=== PATIENT | female | born 1940 | race Caucasian/White ===

== ENCOUNTER 2017-03-07 05:27 | Inpatient (IN) ==
[2017-03-07] MEDS ORDERED: VANCOMYCIN 1,000 MG VIAL ONE (05:55)
[2017-03-07] MEDS ORDERED: ceFAZolin 1,000 MG VIAL ONE (05:55)
[2017-03-07] MEDS ORDERED: LACTATED RINGERS 1,000 ML IV SCH (06:00)
[2017-03-07] MEDS ORDERED: VANCOMYCIN INJ 1,000 MG in SODIUM CHLORIDE 0.9% 250 ML IV ONE (06:30)
[2017-03-07] MEDS ORDERED: ceFAZolin 1,000 MG in SYRINGE 1 EACH IV ONE (06:30)
[2017-03-07] MEDS ORDERED: DIAZEPAM 5 MG TABLET PO ONE (07:58)
[2017-03-07] MEDS ORDERED: FAMOTIDINE 20 MG TABLET PO ONE (07:58)
[2017-03-07] MEDS ORDERED: DIAZEPAM 5 MG TABLET ONE (07:59)
[2017-03-07] MEDS ORDERED: FAMOTIDINE 20 MG TABLET ONE (07:59)
[2017-03-07] MEDS ORDERED: BACITRACIN OINT 0.9 GM PACK TOP ONE (08:51)
[2017-03-07] MEDS ORDERED: TRANEXAMIC ACID 1,000 MG/10 ML VIAL IV ONE (08:51)
[2017-03-07] MEDS ORDERED: ALBUTEROL 2.5 MG/3 ML NEB RESP TX PRN (11:30)
[2017-03-07] MEDS ORDERED: MORPHINE 2 MG/1 ML SYRINGE IV PRN ×2 (11:31)
[2017-03-07] MEDS ORDERED: diphenhydrAMINE CAP 25 MG CAPSULE PO PRN (11:31)
[2017-03-07] MEDS ORDERED: ZALEPLON 5 MG CAPSULE PO PRN (11:31)
[2017-03-07] MEDS ORDERED: ONDANSETRON 4 MG/2 ML VIAL IV PRN (11:31)
[2017-03-07] MEDS ORDERED: MAGNESIUM HYDROXIDE SUSP 30 ML UDCUP PO PRN (11:31)
[2017-03-07] MEDS ORDERED: ROPIVACAINE 0.5% 30 ML VIAL ONE (11:39)
[2017-03-07] MEDS ORDERED: ONDANSETRON 4 MG/2 ML VIAL ONE (11:41)
[2017-03-07] MEDS ORDERED: PROPOFOL 200 MG/20 ML VIAL IV ONE (11:41)
[2017-03-07] MEDS ORDERED: MIDAZOLAM 2 MG/2 ML VIAL ONE (11:41)
[2017-03-07] MEDS ORDERED: fentaNYL 100 MCG/2 ML VIAL ONE (11:42)
[2017-03-07] MEDS ORDERED: SODIUM CHLORIDE 0.9% 200 ML IV ONE (11:42)
[2017-03-07] MEDS ORDERED: ACETAMINOPHEN 1,000 MG/100 ML VIAL IV ONE (11:42)
[2017-03-07 13:41] LABS: Basophils % 0.7 % (0.0-0.8); Eosinophils # 0.1 10*3/uL (0.0-0.87); Eosinophils % 2.2 % (0.00-10.9); Hematocrit 36.7 VOL% (35.7-47.0); Hemoglobin 12.5 GM/DL (12.0-16.0); Immature Granulocytes % 0.3 %; Immature Granulocytes Absolute 0.02 #; Lymphocytes % 33.5 % (21.3-54.2); Mean Corpuscular HGB Conc 34.1 GM/DL (32-36); Mean Corpuscular Hemoglobin 31 PG (27-34); Mean Corpuscular Volume 91.5 FL (87-102); Mean Platelet Volume 8.9 FL (9.6-12.0); Monocytes # 0.4 10*3/uL (0.11-0.8); Monocytes % 7.3 % (1.7-12.7); Neutrophils # 3.4 10*3/uL (1.4-7.4); Platelet Count 193 T/CUMM (130-400); Red Blood Count 4.01 MC/CUMM (3.8-5.5); Red Cell Distribution Width 12.9 % (9.3-17.3)
[2017-03-07 14:01] LABS: Calcium 8.4 MG/DL (8.5-10.1); Osmolality,Calculated 283.3 MOS/KG (273-304); Potassium 4.1 MMOL/L (3.5-5.1)
[2017-03-07] MEDS: KETOROLAC 15 MG/1 ML VIAL IV SCH ×2 (16:03→19:09)
[2017-03-07] MEDS: LACTATED RINGERS 1,000 ML IV SCH ×2 (18:48→23:23)
[2017-03-07] MEDS: ACETAMINOPHEN 500 MG TABLET PO SCH ×2 (19:08→23:03)
[2017-03-07] MEDS: ceFAZolin 2,000 MG in PREMIX 1 EACH IV SCH (19:09)
[2017-03-07] MEDS: hydroCHLOROthiazide 25 MG TABLET PO SCH (20:24)
[2017-03-07] MEDS: IRON (CARBONYL)/VIT C/B12/FA TABLET PO SCH (20:24)
[2017-03-07] MEDS: AMITRIPTYLINE 50 MG TABLET PO SCH (20:25)
[2017-03-07] MEDS: DOCUSATE SODIUM 100 MG CAPSULE PO SCH (20:25)
[2017-03-08] MEDS: KETOROLAC 15 MG/1 ML VIAL IV SCH ×2 (01:23→06:39)
[2017-03-08] MEDS: ceFAZolin 2,000 MG in PREMIX 1 EACH IV SCH (01:31)
[2017-03-08] MEDS: FONDAPARINUX 2.5 MG/0.5 ML SYRINGE SUBCUT SCH (06:17)
[2017-03-08] MEDS: ACETAMINOPHEN 500 MG TABLET PO SCH ×2 (06:18→09:51)
[2017-03-08 06:20] LABS: Basophils % 0.5 % (0.0-0.8); Eosinophils # 0.2 10*3/uL (0.0-0.87); Eosinophils % 2.5 % (0.00-10.9); Hematocrit 34.5 VOL% (35.7-47.0); Hemoglobin 11.5 GM/DL (12.0-16.0); Immature Granulocytes % 0.5 %; Immature Granulocytes Absolute 0.03 #; Lymphocytes # 1.2 10*3/uL (1.4-4.0); Lymphocytes % 17.9 % (21.3-54.2); Mean Corpuscular HGB Conc 33.3 GM/DL (32-36); Mean Corpuscular Hemoglobin 31 PG (27-34); Mean Platelet Volume 9.2 FL (9.6-12.0); Monocytes # 0.7 10*3/uL (0.11-0.8); Monocytes % 11.2 % (1.7-12.7); Neutrophils # 4.3 10*3/uL (1.4-7.4); Neutrophils % 67.4 % (38.7-73.9); Platelet Count 159 T/CUMM (130-400); Red Blood Count 3.71 MC/CUMM (3.8-5.5); Red Cell Distribution Width 12.8 % (9.3-17.3); White Blood Count 6.4 T/CUMM (4-12)
[2017-03-08 06:36] LABS: Calcium 8.4 MG/DL (8.5-10.1); Osmolality,Calculated 280.5 MOS/KG (273-304); Potassium 3.8 MMOL/L (3.5-5.1)
[2017-03-08] MEDS ORDERED: NON-FORMULARY MEDICATION (Fluticasone/Vilanterol [Breo Ellipta 200-25 Mcg Inh] 1 PUFF) INH SCH (09:00)
[2017-03-08] MEDS: FAMOTIDINE 20 MG TABLET PO SCH (09:51)
[2017-03-08] MEDS: DOCUSATE SODIUM 100 MG CAPSULE PO SCH ×2 (09:51→21:04)
[2017-03-08] MEDS: CELECOXIB 200 MG CAPSULE PO SCH (13:06)
[2017-03-08] MEDS ORDERED: MORPHINE 10 MG/1 ML VIAL IV PRN ×2 (14:30)
[2017-03-08] MEDS: IRON (CARBONYL)/VIT C/B12/FA TABLET PO SCH (21:05)
[2017-03-08] MEDS: AMITRIPTYLINE 50 MG TABLET PO SCH (21:05)
[2017-03-08] MEDS: hydroCHLOROthiazide 25 MG TABLET PO SCH (21:05)
[2017-03-09] MEDS: FONDAPARINUX 2.5 MG/0.5 ML SYRINGE SUBCUT SCH (05:36)
[2017-03-09 07:01] LABS: Basophils % 0.4 % (0.0-0.8); Eosinophils # 0.3 10*3/uL (0.0-0.87); Eosinophils % 4.1 % (0.00-10.9); Hemoglobin 11.7 GM/DL (12.0-16.0); Immature Granulocytes % 0.3 %; Immature Granulocytes Absolute 0.02 #; Lymphocytes # 1.1 10*3/uL (1.4-4.0); Lymphocytes % 15.4 % (21.3-54.2); Mean Corpuscular HGB Conc 33.4 GM/DL (32-36); Mean Corpuscular Hemoglobin 31 PG (27-34); Mean Corpuscular Volume 92.8 FL (87-102); Mean Platelet Volume 9.2 FL (9.6-12.0); Monocytes # 0.8 10*3/uL (0.11-0.8); Monocytes % 11.1 % (1.7-12.7); Neutrophils # 4.8 10*3/uL (1.4-7.4); Neutrophils % 68.7 % (38.7-73.9); Platelet Count 164 T/CUMM (130-400); Red Blood Count 3.77 MC/CUMM (3.8-5.5); Red Cell Distribution Width 12.6 % (9.3-17.3)
[2017-03-09] MEDS: FAMOTIDINE 20 MG TABLET PO SCH (08:41)
[2017-03-09] MEDS: CELECOXIB 200 MG CAPSULE PO SCH (08:41)
[2017-03-09] MEDS: DOCUSATE SODIUM 100 MG CAPSULE PO SCH (08:42)
[2017-03-09] MEDS: LACTATED RINGERS 1,000 ML IV SCH (08:58)
[2017-03-09 17:29] VITALS: BP 131/74
== END 2017-03-09 17:21 | disposition home health service (06) | DRG 470 ==
LOC: N.SDSINP 05:27 → N.3E 11:31
PROVIDERS: ADMIT Orthopaedic Surgery; ATTEND Orthopaedic Surgery